=== PATIENT | male | born 1990 | race Hispanic/Latino ===

== ENCOUNTER 2018-04-25 15:21 | Inpatient (IN) | payer BC, OTHER ==
[2018-04-25] MEDS ORDERED: Sodium Chloride 0.9% 1,000 ML IV ONE (16:17)
[2018-04-25] MEDS ORDERED: Sodium Chloride 0.9% 1,000 ML ONE (16:40)
[2018-04-25] MEDS ORDERED: Morphine 4 MG/ML VIAL ONE (16:43)
[2018-04-25 17:03] LABS: BASO % 0.3 % (0.0-2.0); EOS # 0.1 K/uL (0.0-0.7); EOS % 0.8 % (0.0-4.0); LYMPH # 1.7 K/uL (1.0-4.3); LYMPH % 13.8 % (20.0-40.0); MEAN CELL VOLUME 89.1 fL (80.0-94.0); MEAN CORPUSCULAR HEMOGLOBIN 30.9 pg (27.0-31.0); MEAN CORPUSCULAR HGB CONC 34.7 g/dL (33.0-37.0); MEAN PLATELET VOLUME 8.3 fL (7.2-11.7); NEUT # 9.4 K/uL (1.8-7.0); NEUT % 77.1 % (50.0-75.0); RBC 4.54 Mil/uL (4.40-5.90); RED CELL DISTRIBUTION WIDTH 12.9 % (11.5-14.5); WHITE BLOOD COUNT 12.2 K/uL (4.8-10.8)
[2018-04-25 17:10] LABS: URINE BILIRUBIN NEGATIVE (NEGATIVE); URINE BLOOD NEGATIVE (NEGATIVE); URINE CLARITY Clear (Clear); URINE COLOR Yellow (YELLOW); URINE GLUCOSE (UA) NORMAL (Normal); URINE LEUKOCYTE ESTERASE NEG Leu/uL (Negative); URINE PROTEIN NEGATIVE (NEGATIVE)
[2018-04-25 17:11] LABS: INR 1.1; PROTHROMBIN TIME 12.2 SECONDS (9.7-12.2)
[2018-04-25 17:20] LABS: ALB/GLOB RATIO 1.7 (1.0-2.1); ALBUMIN 4.6 g/dL (3.5-5.0); ALT/SGPT 27 U/L (21-72); AST/SGOT 32 U/L (17-59); BLOOD UREA NITROGEN 17 mg/dL (9-20); CALCIUM 9.3 mg/dl (8.6-10.4); GFR AFRICAN-AMERICAN > 60; GFR NON-AFRICAN AMERICAN > 60
[2018-04-25] MEDS ORDERED: Iodixanol 320 mg/ml 150 ml Bottle IV ONE (18:11)
[2018-04-25] MEDS ORDERED: Piperacillin/Tazobact 3.375 gm 100 ML IV STA (18:53)
--- NOTE | 2018-04-25 18:53 | CT ---
Date of service: 04/25/2018 PROCEDURE: CT Abdomen and Pelvis with contrast HISTORY: rlq pain r/o appendicitis COMPARISON: None. TECHNIQUE: Contrast dose: 100 mL Omnipaque 300 Radiation dose: Total exam DLP = 479.7 mGy-cm. This CT exam was performed using one or more of the following dose reduction techniques: Automated exposure control, adjustment of the mA and/or kV according to patient size, and/or use of iterative reconstruction technique. FINDINGS: LOWER THORAX: Unremarkable. LIVER: Unremarkable. No gross lesion or ductal dilatation. GALLBLADDER AND BILE DUCTS: Unremarkable. PANCREAS: Unremarkable. No gross lesion or ductal dilatation. SPLEEN: Unremarkable. ADRENALS: Unremarkable. No mass. KIDNEYS AND URETERS: Unremarkable. No hydronephrosis. No solid mass. VASCULATURE: Unremarkable. No aortic aneurysm. BOWEL: Unremarkable. No obstruction. No gross mural thickening. APPENDIX: Multiple tiny appendicoliths within a minimally dilated appendix with hyper enhancing gabriel and periappendiceal stranding. PERITONEUM: Unremarkable. No free fluid. No free air. LYMPH NODES: Unremarkable. No enlarged lymph nodes. BLADDER: Unremarkable. REPRODUCTIVE: Unremarkable. BONES: No acute fracture. OTHER FINDINGS: None. IMPRESSION: Acute appendicitis. No evidence of perforation or adjacent abscess. Findings conveyed to Dr. Onofre by Dr. Sheehan at 6:50 p.m. on 04/25/2018.
[2018-04-25] MEDS ORDERED: metroNIDAZOLE IV 500 mg/100 ml 500 MG/100 ML BAG IV STA (18:54)
--- NOTE | 2018-04-25 18:56 | C.PDOC ---
History Of Present Illness 27-year-old male presents to the ER complaining of right lower quadrant pain associated with fever, chills, and nausea since last night. He denies any vomiting, diarrhea, dysuria, or hematuria. Patient has a history of kidney stones and states this pain feels different. He denies testicular pain. Last meal was around 11am, consisting of blueberries and toast. Time Seen by Provider: 04/25/18 15:52 Chief Complaint (Nursing): Abdominal Pain History Per: Patient History/Exam Limitations: no limitations Onset/Duration Of Symptoms: Days Current Symptoms Are (Timing): Still Present Severity: Moderate Location Of Pain/Discomfort: RLQ Quality Of Discomfort: "Pain" Associated Symptoms: Fever, Chills, Nausea Past Medical History Reviewed: Historical Data, Nursing Documentation, Vital Signs Vital Signs: Last Vital Signs Temp 97.8 F 04/27/18 07:00 Pulse 60 04/27/18 07:00 Resp 20 04/27/18 07:00 BP 121/61 04/27/18 07:00 Pulse Ox 97 04/27/18 07:00 - Medical History PMH: No Chronic Diseases Surgical History: No Surg Hx - [facility] Procedures DRAINAGE OF PELVIC CAVITY, PERCUTANEOUS ENDOSCOPIC APPROACH (04/25/18) RESECTION OF APPENDIX, PERCUTANEOUS ENDOSCOPIC APPROACH (04/25/18) Family History: States: No Known Family Hx - Social History Hx Tobacco Use: No Hx Alcohol Use: Yes Hx Substance Use: No Review Of Systems Constitutional: Positive for: Fever, Chills Cardiovascular: Negative for: Chest Pain, Palpitations Respiratory: Negative for: Cough, Shortness of Breath Gastrointestinal: Positive for: Nausea, Abdominal Pain. Negative for: Vomiting , Diarrhea Genitourinary: Negative for: Dysuria, Hematuria, Scrotal Pain Physical Exam - Physical Exam Appears: Well, Non-toxic, In Acute Distress (in mild to moderate pain) Skin: Normal Color, Warm, Dry, No Rash Head: Normacephalic Eye(s): bilateral: Normal Inspection Oral Mucosa: Moist Neck: Supple Cardiovascular: Rhythm Regular Respiratory: Normal Breath Sounds, No Rales, No Rhonchi, No Wheezing Gastrointestinal/Abdominal: Bowel Sounds, Soft, Tenderness ((+) McBurneys ), No Guarding, No Rebound Back: Normal Inspection, No CVA Tenderness Extremity: Bilateral: Atraumatic, Normal Color And Temperature, Normal ROM Neurological/Psych: Oriented x3 ED Course And Treatment - Laboratory Results Result Diagrams: 04/27/18 06:42 04/27/18 06:42 ECG: Interpreted By Me, Viewed By Me (sinus bradycardia 53 bpm, normal axis, no acute ST/T wave changes) ECG Interpretation: No Acute Changes O2 Sat by Pulse Oximetry: 100 (RA) Pulse Ox Interpretation: Normal - Radiology CXR: Interpreted by Me, Viewed By Me CXR Interpretation: Yes: No Acute Disease. No: Infiltrates - CT Scan/US ct abd/pelvis Other Rad Studies (CT/US): Read By Radiologist, Radiology Report Reviewed CT/US Interpretation: Accession No. : [id number]. Patient Name / ID : DRAGAN FLORES / [id number]. Exam Date : 04/25/2018 18:37:15 ( Approved ). Study Comment : Sex / Age : M / 27Y. Creator : Manan Barker MD. Dictator : Manan Barker MD. Host/Hostess Head : Freight Manager : Manan Barker MD. Approver2 : Report Date : 04/25/2018 18:52:01. My Comment : . Date of service: 04/25/2018. PROCEDURE: CT Abdomen and Pelvis with contrast. HISTORY: rlq pain r/o appendicitis. COMPARISON: None. TECHNIQUE: Contrast dose: 100 mL Omnipaque 300. Radiation dose: Total exam DLP = 479.7 mGy-cm. This CT exam was performed using one or more of the following dose reduction techniques: Automated exposure control, adjustment of the mA and/or kV according to patient size, and/or use of iterative reconstruction technique. FINDINGS: LOWER THORAX: Unremarkable. LIVER: Unremarkable. No gross lesion or ductal dilatation. GALLBLADDER AND BILE DUCTS: Unremarkable. PANCREAS: Unremarkable. No gross lesion or ductal dilatation. SPLEEN: Unremarkable. ADRENALS: Unremarkable. No mass. KIDNEYS AND URETERS: Unremarkable. No hydronephrosis. No solid mass. VASCULATURE: Unremarkable. No aortic aneurysm. BOWEL: Unremarkable. No obstruction. No gross mural thickening. APPENDIX: Multiple tiny appendicoliths within a minimally dilated appendix with hyper enhancing gabriel and periappendiceal stranding. PERITONEUM: Unremarkable. No free fluid. No free air. LYMPH NODES: Unremarkable. No enlarged lymph nodes. BLADDER: Unremarkable. REPRODUCTIVE: Unremarkable. BONES: No acute fracture. OTHER FINDINGS: None. IMPRESSION: Acute appendicitis. No evidence of perforation or adjacent abscess. Findings conveyed to Dr. Onofre by Dr. Sheehan at 6:50 p.m. on 04/25/2018. Progress Note: Blood work, UA, CT scan ordered and reviewed. Patient made NPO, given IV NS bolus, IV Morphine, IV Zofran. 6:50pm- Surgery resident spoken with , she will come and evaluate patient (surgeon director of elementary education is Dr. Oneill). IV Zosyn and Flagyl given. Patient currently resting comfortably. Disposition - Disposition Disposition: HOSPITALIZED Disposition Time: 18:55 Condition: STABLE - Clinical Impression Clinical Impression: Acute appendicitis - Scribe Statement The provider has reviewed the documentation as recorded by the Scribe (Geovanna German) Provider Attestation: All medical record entries made by the Scribe were at my direction and personally dictated by me. I have reviewed the chart and agree that the record accurately reflects my personal performance of the history, physical exam, medical decision making, and the department course for this patient. I have also personally directed, reviewed, and agree with the discharge instructions and disposition. Decision To Admit - Pt Status Changed To: Hospital Disposition Of: Inpatient - Admit Certification Admit to Inpatient:: After my assessment, the patient will require hospitalization for at least two midnights. This is because of the severity of symptoms shown, intensity of services needed, and/or the medical risk in this patient being treated as an outpatient. - InPatient: Physician Admission Certification:: see notes - . Bed Request Type: Regular Admitting Physician: Inocente Oneill Patient Diagnosis: Acute appendicitis
[2018-04-25] MEDS ORDERED: Piperacillin/Tazobact 3.375 gm 100 ML IVPB ONE (19:19)
[2018-04-25] MEDS ORDERED: metroNIDAZOLE IV 500 mg/100 ml 500 MG/100 ML BAG ONE (19:20)
--- NOTE | 2018-04-25 20:32 | CP.PCM.HP ---
History of Present Illness - History of Present Illness History of Present Illness: 27M seen and evaluated in the ED today for abdominal pain radiating to the right and left lower quadrants that started last night at 8pm following dinner. He states it started out as a dull pain that gradually became sharp and was accompanied by nausea. Patient rates the pain as 7/10 and denies radiation. He states that this is the first time he has felt this type of pain and that the pain is made worse by movement and is alleviated by resting. Patient states he was feverish and had chills last night but it has since subsided. Patient in the ER today denies fever, chills, nausea, headache, vomiting, diarrhea, changes in bowel habits, changes in urinary symptoms, chest pain, heart palpitations, and SOB. PMH: none PSHx: none Medications: none Hospitalizations: none Family History: Heart problems on both sides of the family Social: drinks alcohol, denies smoking, denies drugs Present on Admission - Present on Admission Any Indicators Present on Admission: No Review of Systems - Constitutional Constitutional: absent: Chills, Fever, Weakness - EENT Eyes: absent: Blurred Vision, Change in Vision Ears: absent: Ear Discharge, Ear Pain Nose/Mouth/Throat: absent: Nasal Congestion, Nasal Discharge - Cardiovascular Cardiovascular: absent: Chest Pain, Dyspnea - Respiratory Respiratory: absent: Cough, Dyspnea - Gastrointestinal Gastrointestinal: Abdominal Pain, Nausea. absent: Diarrhea, Vomiting - Genitourinary Genitourinary: absent: Difficulty Urinating, Dysuria - Musculoskeletal Musculoskeletal: absent: Back Pain, Muscle Weakness - Integumentary Integumentary: absent: Changing Lesions, New Lesions - Neurological Neurological: absent: Dizziness, Numbness - Psychiatric Psychiatric: absent: Anxiety, Depression Past Patient History - Past Medical History & Family History Past Medical History?: No - Past Social History Smoking Status: Never Smoked - PSYCHIATRIC Hx Substance Use: No - SURGICAL HISTORY Hx Surgeries: No - ANESTHESIA Hx Anesthesia: No Meds Allergies/Adverse Reactions: Allergies Allergy/AdvReac Type Severity Reaction Status Date / Time No Known Allergies Allergy Verified 04/25/18 15:26 Physical Exam - Constitutional Appears: Well, Non-toxic, No Acute Distress - Head Exam Head Exam: ATRAUMATIC, NORMAL INSPECTION, NORMOCEPHALIC - Eye Exam Eye Exam: EOMI, Normal appearance - ENT Exam ENT Exam: Mucous Membranes Moist, Normal Exam - Respiratory Exam Respiratory Exam: Clear to Auscultation Bilateral, NORMAL BREATHING PATTERN - Cardiovascular Exam Cardiovascular Exam: REGULAR RHYTHM, +S1, +S2 - GI/Abdominal Exam GI & Abdominal Exam: Normal Bowel Sounds, Soft, Tenderness. absent: Distended - Neurological Exam Neurological exam: Alert, Oriented x3 - Psychiatric Exam Psychiatric exam: Normal Affect, Normal Mood - Skin Skin Exam: Dry, Intact, Normal Color, Warm Results - Vital Signs Recent Vital Signs: Last Vital Signs Temp 99.2 F 04/25/18 19:32 Pulse 56 L 04/25/18 19:32 Resp 18 04/25/18 19:32 BP 127/61 04/25/18 19:32 Pulse Ox 99 04/25/18 19:32 - Labs Result Diagrams: 04/25/18 16:56 04/25/18 16:56 Labs: Laboratory Results - last 24 hr 04/25/18 04/25/18 04/25/18 16:56 16:56 16:56 WBC 12.2 H RBC 4.54 Hgb 14.0 Hct 40.4 MCV 89.1 MCH 30.9 MCHC 34.7 RDW 12.9 Plt Count 214 MPV 8.3 Neut % (Auto) 77.1 H Lymph % (Auto) 13.8 L Swain % (Auto) 8.0 Eos % (Auto) 0.8 Baso % (Auto) 0.3 Neut # (Auto) 9.4 H Lymph # (Auto) 1.7 Swain # (Auto) 1.0 H Eos # (Auto) 0.1 Baso # (Auto) 0.0 PT 12.2 INR 1.1 APTT 30 Sodium Potassium Chloride Carbon Dioxide Anion Gap BUN Creatinine Est GFR ( Amer) Est GFR (Non-Af Amer) Random Glucose Calcium Total Bilirubin AST ALT Alkaline Phosphatase Total Protein Albumin Globulin Albumin/Globulin Ratio Urine Color Yellow Urine Clarity Clear Urine pH 6.0 Ur Specific [place] 1.016 Urine Protein Negative Urine Glucose (UA) Normal Urine Ketones Negative Urine Blood Negative Urine Nitrate Negative Urine Bilirubin Negative Urine Urobilinogen 4.0 Ur Leukocyte Esterase Neg Urine WBC (Auto) 1 Urine RBC (Auto) < 1 Blood Type Antibody Screen 04/25/18 04/25/18 16:56 16:56 WBC RBC Hgb Hct MCV MCH MCHC RDW Plt Count MPV Neut % (Auto) Lymph % (Auto) Swain % (Auto) Eos % (Auto) Baso % (Auto) Neut # (Auto) Lymph # (Auto) Swain # (Auto) Eos # (Auto) Baso # (Auto) PT INR APTT Sodium 137 Potassium 4.2 Chloride 99 Carbon Dioxide 28 Anion Gap 15 BUN 17 Creatinine 1.0 Est GFR ( Amer) > 60 Est GFR (Non-Af Amer) > 60 Random Glucose 93 Calcium 9.3 Total Bilirubin 1.6 H AST 32 ALT 27 Alkaline Phosphatase 66 Total Protein 7.2 Albumin 4.6 Globulin 2.7 Albumin/Globulin Ratio 1.7 Urine Color Urine Clarity Urine pH Ur Specific [place] Urine Protein Urine Glucose (UA) Urine Ketones Urine Blood Urine Nitrate Urine Bilirubin Urine Urobilinogen Ur Leukocyte Esterase Urine WBC (Auto) Urine RBC (Auto) Blood Type O POSITIVE Antibody Screen Negative Assessment & Plan - Assessment and Plan (Free Text) Assessment: 27M w/ RLQ abdominal pain Plan: NPO IVF IV Abx AM Labs pain management anti-emetics Book for OR tomorrow 04/26 Consented further recs per Dr. Nino Muller PGY1
[2018-04-25] MEDS ORDERED: metroNIDAZOLE IV 500 mg/100 ml 500 MG/100 ML BAG IVPB SCH (21:00)
[2018-04-25] MEDS: Lactated Ringer's 1,000 ML IV SCH (21:49)
[2018-04-25] MEDS: Piperacill/Tazo 3.375gm in Dex 3.375 GM/50 ML BAG IVPB SCH (22:05)
[2018-04-26] MEDS: Morphine 4 MG/ML VIAL IV SCH ×5 (01:00→16:00)
[2018-04-26] MEDS: metroNIDAZOLE IV 500 mg/100 ml 500 MG/100 ML BAG IVPB SCH ×3 (02:55→19:00)
[2018-04-26] MEDS: Piperacill/Tazo 3.375gm in Dex 3.375 GM/50 ML BAG IVPB SCH ×4 (04:33→22:10)
[2018-04-26] MEDS: Lactated Ringer's 1,000 ML IV SCH ×3 (04:55→20:02)
[2018-04-26 07:32] LABS: BASO % 0.5 % (0.0-2.0); EOS # 0.1 K/uL (0.0-0.7); HEMOGLOBIN 12.7 g/dL (12.0-18.0); LYMPH # 1.6 K/uL (1.0-4.3); LYMPH % 25.6 % (20.0-40.0); MEAN CELL VOLUME 89.7 fL (80.0-94.0); MEAN CORPUSCULAR HEMOGLOBIN 31.6 pg (27.0-31.0); MEAN CORPUSCULAR HGB CONC 35.3 g/dL (33.0-37.0); MEAN PLATELET VOLUME 8.5 fL (7.2-11.7); MONO # 0.6 K/uL (0.0-0.8); MONO % 8.8 % (0.0-10.0); NEUT % 63.1 % (50.0-75.0); NRBC % 0.1 % (0.0-2.0); RBC 4.02 Mil/uL (4.40-5.90); RED CELL DISTRIBUTION WIDTH 12.5 % (11.5-14.5); WHITE BLOOD COUNT 6.3 K/uL (4.8-10.8)
[2018-04-26 08:53] LABS: BLOOD UREA NITROGEN 12 mg/dL (9-20); GFR AFRICAN-AMERICAN > 60; GFR NON-AFRICAN AMERICAN > 60
--- NOTE | 2018-04-26 11:02 | RAD ---
Date of service: 04/25/2018 PROCEDURE: CHEST RADIOGRAPH, 1 VIEW HISTORY: preop COMPARISON: None available. FINDINGS: LUNGS: Clear. PLEURA: No pneumothorax or pleural fluid seen. CARDIOVASCULAR: Normal. OSSEOUS STRUCTURES: No significant abnormalities. VISUALIZED UPPER ABDOMEN: Excreted intravenous contrast in both collecting systems from recent CT scan. OTHER FINDINGS: None. IMPRESSION: No active disease.
[2018-04-26] MEDS ORDERED: HYDROmorphone 0.5 mg/0.5 ml ISec IVP STA (11:15)
[2018-04-26] MEDS ORDERED: Lidocaine/Epinephrine 1% 1:100000 10 ML IJ ONE (15:44)
[2018-04-26] MEDS ORDERED: Bupivacaine 0.25% 20 ML INJ IJ ONE (15:44)
[2018-04-26] MEDS ORDERED: Midazolam 2 MG/2 ML VIAL ONE (15:46)
[2018-04-26] MEDS ORDERED: Propofol 10 mg/ml Inj (20 ML) ONE (15:46)
[2018-04-26] MEDS ORDERED: Rocuronium 10 mg/ml (5 ml) ONE (15:46)
[2018-04-26] MEDS ORDERED: Succinylcholine Chloride 20 mg/ml Syr (5 ml) IV ONE (15:46)
[2018-04-26] MEDS ORDERED: Piperacillin/Tazobact 3.375 gm 100 ML IVPB ONE (16:11)
[2018-04-26] MEDS ORDERED: metroNIDAZOLE IV 500 mg/100 ml 500 MG/100 ML BAG ONE (16:11)
[2018-04-26] MEDS ORDERED: ePHEDrine 50 mg/ml Inj ONE (16:31)
[2018-04-26] MEDS ORDERED: Neostigmine Methylsulfate 3mg/3ml Syringe IV ONE (16:48)
--- NOTE | 2018-04-26 17:43 | CARD ---
APPROVED REPORT Date of service: 04/25/2018 EKG Measurement Heart [id number] CO 134P1 [id number] <Conclusion> Sinus bradycardia Otherwise normal ECG
[2018-04-26] MEDS ORDERED: Naloxone 0.4 mg/ml Inj (Adult) ONE (17:44)
[2018-04-26] MEDS ORDERED: Oxycodone/Acetaminophen 5/325 mg Tab PO PRN (17:52)
--- NOTE | 2018-04-26 17:55 | PCM.SURG1 ---
Surgeon's Initial Post Op Note - Surgeon's Notes Surgeon: Dr. Oneill Co Founder And Cto: Ghislaine Monaco MS3 Type of Anesthesia: General Endo Pre-Operative Diagnosis: Acute appendicitis Operative Findings: Operative findings Post-Operative Diagnosis: Suppurative Acute appendicitis Operation Performed: Laparoscopic appendectomy Specimen/Specimens Removed: Appendix Estimated Blood Loss: EBL {In ML}: 10 Blood Products Given: N/A Drains Used: No Drains Post-Op Condition: Good Date of Surgery/Procedure: 04/26/18 Time of Surgery/Procedure: 17:55
[2018-04-26] MEDS: HYDROmorphone 0.5 mg/0.5 ml ISec IVP PRN ×4 (18:04→22:12)
[2018-04-26] MEDS ORDERED: DiphenhydrAMINE 50 mg/ml Inj IVP STA (18:25)
[2018-04-26] MEDS ORDERED: DiphenhydrAMINE 50 mg/ml Inj ONE (18:30)
[2018-04-26 21:31] VITALS: RESP 20
[2018-04-27] MEDS: metroNIDAZOLE IV 500 mg/100 ml 500 MG/100 ML BAG IVPB SCH ×2 (02:33→11:47)
[2018-04-27] MEDS: Piperacill/Tazo 3.375gm in Dex 3.375 GM/50 ML BAG IVPB SCH ×2 (05:24→11:37)
[2018-04-27] MEDS: Lactated Ringer's 1,000 ML IV SCH (05:28)
--- NOTE | 2018-04-27 06:33 | OP ---
PROCEDURE DATE: 04/26/2018 PREOPERATIVE DIAGNOSES: 1. Acute appendicitis. 2. Leukocytosis and severe abdominal pain. POSTOPERATIVE DIAGNOSES: 1. Acute suppurative appendicitis. 2. Pelvic purulent collection. PROCEDURES DONE: 1. Laparoscopic appendectomy. 2. Laparoscopic drainage of pelvic collection. SURGEON: The procedure was done by , Dr. Inocente Oneill. ASSISTANTS: Milo Martin DO, PGY1 resident and 01:13, medical student. ANESTHESIA: General endotracheal tube anesthesia. ESTIMATED BLOOD LOSS: Around 10 mL. DRAINS: None. PATHOLOGY: The appendix was sent for the pathology. COMPLICATIONS: None. INTRAOPERATIVE FINDINGS: The patient had acute suppurative appendicitis with the pelvic purulent collection. DESCRIPTION OF PROCEDURE: On intraoperative steps, this 27-year-old male who was diagnosed with acute appendicitis with leukocytosis and the patient was consented for the laparoscopic appendectomy, possible open, brought to the OR, placed supine on the operating table. After induction of the anesthesia, the abdomen was prepped and draped in the usual sterile fashion, and the supraumbilical transverse incision was made after incising the skin and subcutaneous tissue and the fascia. Pneumo was created. A 12 mm port was placed in the left lower quadrant and 5 mm port was placed in suprapubic region after the grasper and dissector were introduced, and the appendix was identified and the mesoappendix was resected with harmonic scalpel. The base of appendix was resected with ELIAS. The patient found to have pelvic purulent collection that was suctioned, irrigated, and drained. Periappendicular area as well as perihepatic area was also suctioned and irrigated. After proper hemostasis, all the ports were taken out under vision. Pneumo was deflated and the umbilical port site was closed in two layers. The left lower quadrant port site was also closed in two layers; the fascia with 0 Vicryl and skin with 4-0 Monocryl. Dry sterile dressing was applied. The supraumbilical port site was also closed in two layers. The patient was extubated in the OR and sent to the postanesthesia care unit in stable condition. There was no apparent complication. The patient tolerated the procedure well. Count of the instrument and gauze was correct. Inoecnte Oneill MD
[2018-04-27] MEDS: HYDROmorphone 0.5 mg/0.5 ml ISec IVP PRN (06:40)
[2018-04-27 07:16] LABS: BLOOD UREA NITROGEN 12 mg/dL (9-20); GFR AFRICAN-AMERICAN > 60; GFR NON-AFRICAN AMERICAN > 60
[2018-04-27 07:22] LABS: BASO % 0.1 % (0.0-2.0); EOS % 0.1 % (0.0-4.0); HEMOGLOBIN 12.6 g/dL (12.0-18.0); LYMPH % 8.2 % (20.0-40.0); MEAN CELL VOLUME 89.3 fL (80.0-94.0); MEAN CORPUSCULAR HEMOGLOBIN 31.2 pg (27.0-31.0); MEAN CORPUSCULAR HGB CONC 34.9 g/dL (33.0-37.0); MEAN PLATELET VOLUME 8.8 fL (7.2-11.7); MONO # 0.7 K/uL (0.0-0.8); MONO % 6.2 % (0.0-10.0); NEUT # 10.2 K/uL (1.8-7.0); NEUT % 85.4 % (50.0-75.0); PLATELET COUNT 226 K/uL (130-400); RBC 4.03 Mil/uL (4.40-5.90); RED CELL DISTRIBUTION WIDTH 12.7 % (11.5-14.5)
[2018-04-27 08:04] VITALS: BP 121/61; PULSE 60; TEMP 97.8
[2018-04-27 08:54] LABS: LYMPHOCYTE 10 % (20-40); MONOCYTE 4 % (0-10); NEUTROPHIL 86 % (50-75); TOTAL CELLS COUNTED 100
[2018-04-27 08:55] LABS: PLATELET ESTIMATE NORMAL (NORMAL)
[2018-04-27] MEDS ORDERED: Oxycodone/Acetaminophen 5/325 mg Tab PO PRN (11:07)
--- NOTE | 2018-04-27 12:39 | CP.PCM.DIS ---
Provider - Provider Date of Admission: 04/25/18 18:54 Attending physician: Inocente Oneill MD Time Spent in preparation of Discharge (in minutes): 30 Diagnosis - Discharge Diagnosis (1) Appendicitis Status: Acute Hospital Course - Lab Results Lab Results: Most Recent Lab Values WBC 12.0 K/uL (4.8-10.8) H D 04/27/18 06:42 RBC 4.03 Mil/uL (4.40-5.90) L 04/27/18 06:42 Hgb 12.6 g/dL (12.0-18.0) 04/27/18 06:42 Hct 36.0 % (35.0-51.0) 04/27/18 06:42 MCV 89.3 fL (80.0-94.0) 04/27/18 06:42 MCH 31.2 pg (27.0-31.0) H 04/27/18 06:42 MCHC 34.9 g/dL (33.0-37.0) 04/27/18 06:42 RDW 12.7 % (11.5-14.5) 04/27/18 06:42 Plt Count 226 K/uL (130-400) 04/27/18 06:42 MPV 8.8 fL (7.2-11.7) 04/27/18 06:42 Neut % (Auto) 85.4 % (50.0-75.0) H 04/27/18 06:42 Lymph % (Auto) 8.2 % (20.0-40.0) L 04/27/18 06:42 [place] % (Auto) 6.2 % (0.0-10.0) 04/27/18 06:42 Eos % (Auto) 0.1 % (0.0-4.0) 04/27/18 06:42 Baso % (Auto) 0.1 % (0.0-2.0) 04/27/18 06:42 Neut # (Auto) 10.2 K/uL (1.8-7.0) H 04/27/18 06:42 Lymph # (Auto) 1.0 K/uL (1.0-4.3) 04/27/18 06:42 Luce # (Auto) 0.7 K/uL (0.0-0.8) 04/27/18 06:42 Eos # (Auto) 0.0 K/uL (0.0-0.7) 04/27/18 06:42 Baso # (Auto) 0.0 K/uL (0.0-0.2) 04/27/18 06:42 Neutrophils % (Manual) 86 % (50-75) H 04/27/18 06:42 Lymphocytes % (Manual) 10 % (20-40) L 04/27/18 06:42 Monocytes % (Manual) 4 % (0-10) 04/27/18 06:42 Platelet Estimate Normal (NORMAL) 04/27/18 06:42 RBC Morphology Normal 04/27/18 06:42 PT 12.2 SECONDS (9.7-12.2) 04/25/18 16:56 INR 1.1 04/25/18 16:56 APTT 30 SECONDS (21-34) 04/25/18 16:56 Sodium 138 mmol/L (132-148) 04/27/18 06:42 Potassium 4.1 mmol/L (3.6-5.2) 04/27/18 06:42 Chloride 101 mmol/L (98-107) 04/27/18 06:42 Carbon Dioxide 28 mmol/L (22-30) 04/27/18 06:42 Anion Gap 13 (10-20) 04/27/18 06:42 BUN 12 mg/dL (9-20) 04/27/18 06:42 Creatinine 1.1 mg/dL (0.8-1.5) 04/27/18 06:42 Est GFR ( Amer) > 60 04/27/18 06:42 Est GFR (Non-Af Amer) > 60 04/27/18 06:42 Random Glucose 135 mg/dL (75-110) H 04/27/18 06:42 Calcium 9.0 mg/dl (8.6-10.4) 04/27/18 06:42 Total Bilirubin 1.6 mg/dL (0.2-1.3) H 04/25/18 16:56 AST 32 U/L (17-59) 04/25/18 16:56 ALT 27 U/L (21-72) 04/25/18 16:56 Alkaline Phosphatase 66 U/L (38-126) 04/25/18 16:56 Total Protein 7.2 g/dL (6.3-8.3) 04/25/18 16:56 Albumin 4.6 g/dL (3.5-5.0) 04/25/18 16:56 Globulin 2.7 gm/dL (2.2-3.9) 04/25/18 16:56 Albumin/Globulin Ratio 1.7 (1.0-2.1) 04/25/18 16:56 Urine Color Yellow (YELLOW) 04/25/18 16:56 Urine Clarity Clear (Clear) 04/25/18 16:56 Urine pH 6.0 (5.0-8.0) 04/25/18 16:56 Ur Specific [place] 1.016 (1.003-1.030) 04/25/18 16:56 Urine Protein Negative mg/dL (NEGATIVE) 04/25/18 16:56 Urine Glucose (UA) Normal mg/dL (Normal) 04/25/18 16:56 Urine Ketones Negative mg/dL (NEGATIVE) 04/25/18 16:56 Urine Blood Negative (NEGATIVE) 04/25/18 16:56 Urine Nitrate Negative (NEGATIVE) 04/25/18 16:56 Urine Bilirubin Negative (NEGATIVE) 04/25/18 16:56 Urine Urobilinogen 4.0 mg/dL (0.2-1.0) 04/25/18 16:56 Ur Leukocyte Esterase Neg [place]/uL (Negative) 04/25/18 16:56 Urine WBC (Auto) 1 /hpf (0-5) 04/25/18 16:56 Urine RBC (Auto) < 1 /hpf (0-3) 04/25/18 16:56 Blood Type O POSITIVE 04/25/18 16:56 Antibody Screen Negative 04/25/18 16:56 - Hospital Course Hospital Course: 27M presented w. acute appendicitis, underwent laparoscopic appendectomy. Post- op course was uncomplicated. Pt is tolerating diet, no N/V. Pain is controlled. No F/C. Clear for D/C. Discharge Exam - Head Exam Head Exam: ATRAUMATIC, NORMAL INSPECTION, NORMOCEPHALIC - Eye Exam Eye Exam: EOMI - ENT Exam ENT Exam: Mucous Membranes Moist - Neck Exam Neck exam: Full Rom - Respiratory Exam Respiratory Exam: NORMAL BREATHING PATTERN. absent: Accessory Muscle Use, Respiratory Distress - GI/Abdominal Exam GI & Abdominal Exam: Tenderness (per-incisional ). absent: Distended, Firm, Guarding, Rebound, Rigid, Soft Additional comments: dressings in place, C/D/I - Neurological Exam Neurological exam: Alert, Oriented x3 - Psychiatric Exam Psychiatric exam: Normal Affect, Normal Mood - Skin Skin Exam: Dry, Normal Color, Warm Discharge Plan - Discharge Medications Prescriptions: Levofloxacin [Levaquin] 500 mg PO DAILY #7 tablet - Follow Up Plan Condition: GOOD Disposition: HOME/ ROUTINE Patient education suggested?: Yes Instructions: Appendectomy, Laparoscopic Surgery Additional Instructions: Call Dr. Oneill's office to schedule follow up appointment in 1-2 weeks. Take meds as instructed. Diet as tolerated. No heavy lifting >15-20 lbs for 4 weeks. If concerns arise, call office or return to ED. Referrals: Inocente Oneill MD [Staff Provider] -
[2018-04-28] MEDS ORDERED: Pneumococcal 23-Valent Vaccine IM ONE (10:00)
[2018-04-29 08:06] VITALS: O2SAT 100
== END 2018-04-27 14:18 | disposition home or self-care (01) | DRG 343 ==
LOC: C.ER 15:21 → C.9E 18:54 → C.3T 20:10
PROVIDERS: ADMIT Surgery Surgical Critical Care; ATTEND Surgery Surgical Critical Care
PROC: 0W9J4ZZ Drainage of Pelvic Cavity, Percutaneous Endoscopic Approach (ICD-10-PCS; 2018-04-26)
PROC: 0DTJ4ZZ Resection of Appendix, Percutaneous Endoscopic Approach (ICD-10-PCS; principal; 2018-04-26 12:00)
DX: K35.80 Unspecified acute appendicitis (principal); Z87.442 Personal history of urinary calculi